=== PATIENT | female | born 1945 | race Caucasian/White ===

== ENCOUNTER → 2016-11-12 | Outpatient (CLI) | payer OTHER ==
[~2016-11-12] MED LIST: ADULT LOW DOSE81 M1 PO; ATIVAN0.5 MG PO; CENTRUM SILVER1 EAC3 PO; ELMIRON100 MG PO; FISH OIL300 MG PO; LEVOTHROID75 MCG PO; LISINOPRIL-HCT1 EAC3 PO; PREDNISONE5 MG PO; VITAMIN C500 M1 PO; VITAMIN D1000 UNIT PO
== END | disposition home or self-care (01) ==
LOC: NUC 08:30
DX: R10.13 Epigastric pain (principal)
CPT/HCPCS: 78264; A9541

== ENCOUNTER → 2017-01-28 | Outpatient (CLI) | payer OTHER | END | disposition home or self-care (01) | LOC: NUC 06:46 | DX: R14.0 Abdominal distension (gaseous) (principal) | CPT/HCPCS: 78227; A9537; J2805 ==